=== PATIENT | male | born 1975 | race Caucasian/White ===

== ENCOUNTER 2016-11-26 18:32 | Emergency (ER) | payer SELFPAY ==
[~2016-11-26] VITALS: Ht 185.4 cm; Wt 113.4 kg
--- NOTE | ~2016-11-26 | CR63 ---
[facility] A Service of [facility] & [facility] RADIOLOGY TEXT RESULTS PATIENT: YAZAN MOLINA LOCATION: SED : 73 UNIT #: [id number] AGE: [address]: Jimmy Hester MD SEX: M ORDER DR: [id number] [place] [id number] E MR#: [id number] Acc #: [id number] NAME: YAZAN MOLINA : 1975 SEX: M STUDY DATE/TIME: 11/26/2016 19:13 UNIT: SED ROOM: STUDY DESCRIPTION: CR Chest 2 View Attending Physician: Jimmy Hester M.D. Ordering Physician: Jimmy Hester M.D. Primary Care Physician: Isidoro Marte M.D. MEDICAL IMAGING REPORT This report is preliminary unless electronic signature is present. EXAM 2 views of the chest COMPARISON January 16, 2015. INDICATION 41-year-old male with productive cough with green sputum for 1-1/2 weeks. FINDINGS Cardiomediastinal silhouette is within normal limits. There is stable appearance of normal bronchovascular structures overlapping the ribs in the right lung base. No evidence of pneumothorax, pleural effusion or acute airspace disease. Minimal multilevel anterior osteophyte formation of the thoracic spine. IMPRESSION Normal heart size. No acute radiographic abnormality. Dictated by... Dustin Adams M.D. THIS IS AN ELECTRONICALLY VERIFIED REPORT Dustin Adams M.D. at 12/03/2016 10:55 AM [place] TD: 11/27/2016 10:35 JOB #: [id number] MEDICAL IMAGING REPORT Page 1 of 1
[~2016-11-26 18:32] MED LIST: ALBUTEROL17 GM INH; CERTAGEN PO; CLEOCIN HCL300 M1 PO; CRESTOR PO; DICYCLOMINE HCL20 MG PO; DOXYCYCLINE HY100 M1 PO; ILOTYCIN OD; MEDROL PO; METFORMIN HCL1000 M1 PO; PEPCID AC20 M2 PO; PREDNISONE10 MG/DOSE PO; VOLTAREN75 MG PO
[2016-11-26] MEDS ORDERED: CIALIS (18:55)
[2016-11-26] MEDS ORDERED: LIPITOR40 MG PO (18:55)
[2016-11-26] MEDS ORDERED: FISH OIL (18:56)
[2016-11-26] MEDS ORDERED: OMEPRAZOLE20 M1 PO (18:56)
[2016-11-26] MEDS ORDERED: GARCINIA CAMBO1 EACH PO (18:56)
== END 2016-11-26 20:33 | disposition home or self-care (01) ==
LOC: SED 18:32
DX: J40 Bronchitis, not specified as acute or chronic (principal); F17.200 Nicotine dependence, unspecified, uncomplicated; Z88.0 Allergy status to penicillin
CPT/HCPCS: 71020; 94640; 99283